=== PATIENT | male | born 1935 | race Caucasian/White ===

== ENCOUNTER 2018-11-07 15:41 | Inpatient (IN) | payer MEDICAID, OTHER ==
[~2018-11-07] VITALS: Ht 170.2 cm; Wt 76.7 kg
[2018-11-08 01:07] LABS: BASOPHILS % 0.8 % (0.0-2.0); EOSINOPHILS % 1.2 % (0.0-5.0); HEMATOCRIT. 25.5 % (42.0-52.0); HEMOGLOBIN. 8.4 g/dL (14.0-18.0); MEAN CORPUSCULAR HEMOGLOBIN 29.2 pg (28.0-32.0); MEAN CORPUSCULAR VOLUME 89.3 fL (80.0-94.0); MEAN PLATELET VOLUME 6.7 fl (7.4-10.4); MONOCYTES % 9.9 % (2.0-8.0); NEUTROPHILS % 75.1 % (40.0-76.0); PLATELET 273 x1000/uL (130-400); RED BLOOD CELL COUNT 2.86 mill/uL (4.7-6.1); RED CELL DISTRIBUTION WIDTH 15.6 % (11.6-14.6)
[2018-11-08 01:13] LABS: CHLORIDE 93 mEq/L (98-107)
[2018-11-08] MEDS ORDERED: LEVOFLOXACIN 750MG PREMIX 150 ML IV ONE (02:45)
[2018-11-08] MEDS ORDERED: VANCOMYCIN 1 G PREMIX 200 ML IV SCH (02:45)
[2018-11-08] MEDS ORDERED: DOCUSATE SODIUM 100MG CAPSULE PO PRN (07:00)
[2018-11-08] MEDS ORDERED: MAGNESIUM/ALUMINUM HYDROXIDE/SIMETHICONE 30ML UDC PO PRN (07:00)
[2018-11-08] MEDS ORDERED: LORAZEPAM 2MG/ML CPJ IV PRN (07:00)
[2018-11-08] MEDS ORDERED: ENOXAPARIN 40MG/0.4ML SYR SUBCUT SCH (07:00)
[2018-11-08] MEDS ORDERED: CLONIDINE 0.1MG TABLET PO PRN (07:00)
[2018-11-08] MEDS ORDERED: PIPERACILLIN/TAZ 3.375G PREMIX 50 ML IV SCH (07:00)
[2018-11-08] MEDS ORDERED: NA PHOS,M-B/NA PHOS,DI-BA ENEMA 118ML PR PRN (07:00)
[2018-11-08] MEDS ORDERED: GUAIFENESIN 200MG/10ML SUGAR FREE UDC PO PRN (07:00)
[2018-11-08] MEDS ORDERED: DIPHENHYDRAMINE 50MG/ML VIAL IV PRN (07:00)
[2018-11-08] MEDS ORDERED: IPRATROPIUM/ALBUTEROL 0.5-3(2.5)MG/3ML NEB INH PRN (07:00)
[2018-11-08] MEDS ORDERED: ONDANSETRON HCL 4MG/2ML INJ IV PRN (07:00)
[2018-11-08 07:30] VITALS: BP 126/68
[2018-11-08] MEDS ORDERED: MORPHINE SULFATE 4 MG/ML CPJ (NOT FOR IM USE) IV PRN (07:30)
[2018-11-08 08:00] VITALS: BP 126/68
[2018-11-08] MEDS ORDERED: CARVEDILOL 3.125 MG TABLET PO SCH (09:00)
[2018-11-08] MEDS: ENOXAPARIN 30MG/0.3ML SYR SUBCUT SCH (09:59)
[2018-11-08] MEDS: PIPERACILLIN/TAZ 2.25G PREMIX 50 ML IV SCH ×2 (09:59→18:01)
[2018-11-08] MEDS: HYDROCODONE/ACETAMINOPHEN 5/325MG TABLET PO PRN ×3 (10:01→19:50)
[2018-11-08] MEDS: ASPIRIN 81MG EC TABLET PO SCH (10:01)
[2018-11-08] MEDS ORDERED: VANCOMYCIN 500 MG PREMIX 100 ML IV SCH (11:00)
[2018-11-08 12:00] VITALS: BP 124/64
[2018-11-08] MEDS ORDERED: TAMS0.4C31 MT (15:44)
[2018-11-08] MEDS ORDERED: HYDR-4009 MT (15:44)
[2018-11-08] MEDS ORDERED: DOCU100T MT (15:44)
[2018-11-08] MEDS ORDERED: FURO40TA5 MT (15:44)
[2018-11-08 16:00] VITALS: BP 119/56
[2018-11-08] MEDS ORDERED: LACTULOSE 20G/30ML UDC PO PRN (17:00)
[2018-11-08] MEDS: IRON SUCROSE COMPLEX 100 MG/5 ML ML IV SCH (19:50)
[2018-11-08 20:00] VITALS: BP 127/63
[2018-11-09] VITALS: BP 132/59
[2018-11-09] MEDS: PIPERACILLIN/TAZ 2.25G PREMIX 50 ML IV SCH ×3 (00:14→17:56)
[2018-11-09] MEDS ORDERED: EPOETIN ALFA 4000UNITS/ML VIAL SUBCUT NR (01:00)
[2018-11-09 04:00] VITALS: BP 133/58
[2018-11-09 08:00] VITALS: BP 132/61
[2018-11-09 08:51] LABS: EOSINOPHILS % 1.9 % (0.0-5.0); HEMATOCRIT. 24.2 % (42.0-52.0); HEMOGLOBIN. 8.1 g/dL (14.0-18.0); LYMPHOCYTES % 14.5 % (20.0-50.0); MEAN CORPUSCULAR HEMOGLOBIN 29.6 pg (28.0-32.0); MEAN CORPUSCULAR VOLUME 88.6 fL (80.0-94.0); MEAN PLATELET VOLUME 6.8 fl (7.4-10.4); MONOCYTES % 10.3 % (2.0-8.0); NEUTROPHILS % 72.3 % (40.0-76.0); PLATELET 255 x1000/uL (130-400); RED BLOOD CELL COUNT 2.73 mill/uL (4.7-6.1); RED CELL DISTRIBUTION WIDTH 15.1 % (11.6-14.6)
[2018-11-09 09:02] LABS: CHLORIDE 91 mEq/L (98-107)
[2018-11-09 09:11] LABS: LDL CHOLESTEROL 55 mg/dL (5-100)
[2018-11-09 09:14] LABS: HDL CHOLESTEROL 45 mg/dL (40-59); T4 FREE 1.16 ng/dL (0.76-1.46)
[2018-11-09] MEDS: IRON SUCROSE COMPLEX 100 MG/5 ML ML IV SCH (09:18)
[2018-11-09] MEDS: ASPIRIN 81MG EC TABLET PO SCH (09:18)
[2018-11-09] MEDS: HYDROCODONE/ACETAMINOPHEN 5/325MG TABLET PO PRN ×2 (09:20→14:21)
[2018-11-09] MEDS: ENOXAPARIN 30MG/0.3ML SYR SUBCUT SCH (09:21)
[2018-11-09] MEDS ORDERED: IOHEXOL-350 100 ML BOTTLE ONE (11:38)
[2018-11-09 12:00] VITALS: BP 123/56
[2018-11-09 16:00] VITALS: BP 113/65
[2018-11-09 20:00] VITALS: BP 110/55
[2018-11-10] VITALS: BP 120/56
[2018-11-10 04:00] VITALS: BP 126/62
[2018-11-10 08:00] VITALS: BP 127/56
[2018-11-10] MEDS: ENOXAPARIN 30MG/0.3ML SYR SUBCUT SCH (09:00)
[2018-11-10] MEDS: ASPIRIN 81MG EC TABLET PO SCH (09:00)
[2018-11-10] MEDS: PIPERACILLIN/TAZ 2.25G PREMIX 50 ML IV SCH ×3 (09:58→17:00)
[2018-11-10] MEDS: IRON SUCROSE COMPLEX 100 MG/5 ML ML IV SCH (09:58)
[2018-11-10] MEDS ORDERED: BACITRACIN 15GM TUBE TOP ONE (11:17)
[2018-11-10] MEDS ORDERED: LIDOCAINE HCL 1% 20ML VIAL (Pyxis) INJ ONE (11:17)
[2018-11-10] MEDS ORDERED: GELATIN SPONGE,ABSORBABLE 12-7MM SPONGE ONE (11:17)
[2018-11-10] MEDS ORDERED: THROMBIN (BOVINE) 5000 UNITS/VIAL TOP ONE (11:18)
[2018-11-10] MEDS ORDERED: NORMAL SALINE 0.9% 10 ML SYR ONE (11:18)
[2018-11-10] MEDS ORDERED: BUPIVACAINE HCL/PF 0.5% (5MG/ML) 10ML ONE (11:18)
[2018-11-10] MEDS ORDERED: BACITRACIN 50,000 UNITS/VIAL ONE (11:19)
[2018-11-10] MEDS ORDERED: PAPAVERINE HCL 30 MG/ML 2ML IV ONE (11:58)
[2018-11-10] MEDS ORDERED: HEPARIN SODIUM 1,000 UNIT/1ML VIAL IV ONE (11:58)
[2018-11-10] MEDS ORDERED: VANCOMYCIN 750 MG PREMIX 150 ML IV SCH (14:00)
[2018-11-10] MEDS ORDERED: FENTANYL CITRATE/PF 50MCG/ML 2ML VIAL ONE (15:14)
[2018-11-10] MEDS ORDERED: SUCCINYLCHOLINE CHLORIDE 200MG/10ML IV ONE (15:15)
[2018-11-10] MEDS ORDERED: GLYCOPYRROLATE 0.2 MG/ML 2ML VIAL ONE (15:15)
[2018-11-10] MEDS ORDERED: METOCLOPRAMIDE HCL 10MG/2ML VIAL ONE (15:15)
[2018-11-10] MEDS ORDERED: MIDAZOLAM HCL 2 MG/2 ML VIAL ONE (15:15)
[2018-11-10] MEDS ORDERED: LIDOCAINE HCL/PF 1% 10 MG/ML 5ML VIAL ONE (15:15)
[2018-11-10] MEDS ORDERED: PROPOFOL 200MG/20ML VIAL IV ONE (15:15)
[2018-11-10] MEDS ORDERED: ONDANSETRON HCL 4MG/2ML INJ ONE (15:15)
[2018-11-10] MEDS ORDERED: ONDANSETRON HCL 4MG/2ML INJ IV PRN (15:30)
[2018-11-10] MEDS ORDERED: HYDROMORPHONE HCL/PF 2MG/ML CPJ IV PRN (15:30)
[2018-11-10] MEDS ORDERED: MORPHINE SULFATE 4 MG/ML CPJ (NOT FOR IM USE) IV PRN (15:30)
[2018-11-10] MEDS ORDERED: HEPARIN 1000 UNITS/ML 10ML ONE (15:38)
[2018-11-10] MEDS ORDERED: SODIUM CHLORIDE 0.9% 1,000 ML IV ONE (16:00)
[2018-11-10] MEDS ORDERED: HEPARIN SODIUM 1,000 UNIT/1ML VIAL IV NR (19:45)
[2018-11-10 20:00] VITALS: BP 125/66
[2018-11-10] MEDS: EPOETIN ALFA 4000UNITS/ML VIAL SUBCUT SCH (21:34)
[2018-11-10] MEDS: HYDROCODONE/ACETAMINOPHEN 5/325MG TABLET PO PRN (21:57)
[2018-11-11] VITALS (7 sets, daily range): BP systolic 103–115; BP diastolic 41–56
[2018-11-11] MEDS: PIPERACILLIN/TAZ 2.25G PREMIX 50 ML IV SCH ×3 (00:40→17:38)
[2018-11-11] MEDS: ACETAMINOPHEN 325MG TABLET PO PRN (01:15)
[2018-11-11] MEDS: IRON SUCROSE COMPLEX 100 MG/5 ML ML IV SCH (08:40)
[2018-11-11] MEDS: ASPIRIN 81MG EC TABLET PO SCH (08:40)
[2018-11-11] MEDS: ENOXAPARIN 30MG/0.3ML SYR SUBCUT SCH (08:40)
[2018-11-11 17:18] LABS: BG BASE EXCESS 2.7 mmol/L (-2.0-2.0); BG CARBOXYHEMOGLOBIN 0.8 % (0.5-1.5); BG DEOXYHEMOGLOBIN 9.8 % (0.0-5.0); BG HCO3 ACT 27.2 mmol/L (22.0-26.0); BG METHEMOGLOBIN 0.3 % (0.0-1.5); BG OXYGEN SATURATION 90.1 % (92.0-98.5); BG OXYHEMOGLOBIN 89.1 % (94.0-97.0); BG PCO2 41.8 mmHg (35.0-45.0); BG PH 7.432 (7.350-7.450); BG PO2 58.4 mmHg (75.0-100.0); BG SAMPLE SITE RIGHT BRACHIAL; BG TOTAL HEMOGLOBIN 10.2 g/dL (12.0-18.0); BG VENT MODE ROOM AIR
[2018-11-12] VITALS: BP 117/49
[2018-11-12] MEDS: ACETAMINOPHEN 325MG TABLET PO PRN (00:04)
[2018-11-12] MEDS: PIPERACILLIN/TAZ 2.25G PREMIX 50 ML IV SCH ×3 (00:04→16:18)
[2018-11-12 04:00] VITALS: BP 126/52
[2018-11-12 06:20] LABS: BASOPHILS % 0.8 % (0.0-2.0); EOSINOPHILS % 3.4 % (0.0-5.0); HEMATOCRIT. 22.6 % (42.0-52.0); HEMOGLOBIN. 7.4 g/dL (14.0-18.0); LYMPHOCYTES % 13.2 % (20.0-50.0); MEAN CORPUSCULAR HEMOGLOBIN 29.3 pg (28.0-32.0); MEAN PLATELET VOLUME 7.4 fl (7.4-10.4); MONOCYTES % 10.9 % (2.0-8.0); NEUTROPHILS % 71.7 % (40.0-76.0); PLATELET 252 x1000/uL (130-400); RED BLOOD CELL COUNT 2.51 mill/uL (4.7-6.1); RED CELL DISTRIBUTION WIDTH 15.8 % (11.6-14.6)
[2018-11-12 08:00] VITALS: BP 123/57
[2018-11-12] MEDS: ASPIRIN 81MG EC TABLET PO SCH (08:56)
[2018-11-12] MEDS: IRON SUCROSE COMPLEX 100 MG/5 ML ML IV SCH (08:56)
[2018-11-12] MEDS: ENOXAPARIN 30MG/0.3ML SYR SUBCUT SCH (08:57)
[2018-11-12 12:00] VITALS: BP 115/56
[2018-11-12 16:00] VITALS: BP 103/48
[2018-11-12] MEDS ORDERED: VANCOMYCIN 1250MG in DEXTROSE 5% WATER 250ML IV NR (18:00)
[2018-11-12 20:00] VITALS: BP 106/42
[2018-11-12] MEDS: HYDROCODONE/ACETAMINOPHEN 5/325MG TABLET PO PRN (22:16)
[2018-11-12] MEDS: EPOETIN ALFA 4000UNITS/ML VIAL SUBCUT SCH (22:16)
[2018-11-13] VITALS: BP 125/55
[2018-11-13] MEDS: PIPERACILLIN/TAZ 2.25G PREMIX 50 ML IV SCH ×3 (01:41→17:16)
[2018-11-13 04:00] VITALS: BP 118/54
[2018-11-13 07:07] LABS: BASOPHILS % 0.6 % (0.0-2.0); EOSINOPHILS % 4.7 % (0.0-5.0); HEMOGLOBIN. 7.2 g/dL (14.0-18.0); MEAN CORPUSCULAR HEMOGLOBIN 30.1 pg (28.0-32.0); MEAN CORPUSCULAR VOLUME 92.2 fL (80.0-94.0); MEAN PLATELET VOLUME 7.5 fl (7.4-10.4); MONOCYTES % 10.6 % (2.0-8.0); NEUTROPHILS % 71.1 % (40.0-76.0); PLATELET 261 x1000/uL (130-400); RED BLOOD CELL COUNT 2.39 mill/uL (4.7-6.1); RED CELL DISTRIBUTION WIDTH 15.3 % (11.6-14.6)
[2018-11-13 08:00] VITALS: BP 126/46
[2018-11-13] MEDS: ASPIRIN 81MG EC TABLET PO SCH (08:54)
[2018-11-13] MEDS: ENOXAPARIN 30MG/0.3ML SYR SUBCUT SCH (08:55)
[2018-11-13 12:00] VITALS: BP 138/56
[2018-11-13] MEDS: ACETAMINOPHEN 325MG TABLET PO PRN (15:13)
[2018-11-13 15:55] VITALS: BP 131/41
[2018-11-13 20:00] VITALS: BP 133/57
[2018-11-13] MEDS ORDERED: IRON SUCROSE COMPLEX 100 MG/5 ML ML IV SCH (23:00)
[2018-11-14] VITALS: BP 120/58
[2018-11-14] MEDS: IRON SUCROSE COMPLEX 100 MG/5 ML ML IV SCH ×2 (01:35→10:32)
[2018-11-14] MEDS: PIPERACILLIN/TAZ 2.25G PREMIX 50 ML IV SCH ×3 (01:35→17:28)
[2018-11-14 04:00] VITALS: BP 155/55
[2018-11-14 08:00] VITALS: BP 143/68
[2018-11-14] MEDS: ASPIRIN 81MG EC TABLET PO SCH (09:43)
[2018-11-14] MEDS: ACETAMINOPHEN 325MG TABLET PO PRN ×2 (09:56→17:48)
[2018-11-14] MEDS: ENOXAPARIN 30MG/0.3ML SYR SUBCUT SCH (09:56)
[2018-11-14 12:00] VITALS: BP 122/53
[2018-11-14 16:00] VITALS: BP 138/63
[2018-11-14 20:00] VITALS: BP 130/65
[2018-11-14] MEDS: EPOETIN ALFA 4000UNITS/ML VIAL SUBCUT SCH (23:15)
[2018-11-15] VITALS: BP 140/65
[2018-11-15 04:00] VITALS: BP 140/64
[2018-11-15 08:00] VITALS: BP 138/62
[2018-11-15] MEDS: PIPERACILLIN/TAZ 2.25G PREMIX 50 ML IV SCH (09:00)
[2018-11-15] MEDS: IRON SUCROSE COMPLEX 100 MG/5 ML ML IV SCH (09:44)
[2018-11-15] MEDS: ENOXAPARIN 30MG/0.3ML SYR SUBCUT SCH (09:44)
[2018-11-15] MEDS: ASPIRIN 81MG EC TABLET PO SCH (09:44)
[2018-11-15] MEDS: ACETAMINOPHEN 325MG TABLET PO PRN (11:37)
[2018-11-15 12:00] VITALS: BP 148/71
[2018-11-15 12:33] VITALS: BP 142/70
== END 2018-11-15 12:45 | disposition home or self-care (01) | DRG 180 ==
LOC: ER 17:12 → 6EST 11-08 02:41 → EDBEDREQ 11-08 03:01 → EDBEDREQTM 11-08 03:01 → ENRESERV 11-08 03:59
PROVIDERS: ADMIT Internal Medicine; ATTEND Internal Medicine
PROC: 03180ZD Bypass Left Brachial Artery to Upper Arm Vein, Open Approach (ICD-10-PCS; principal; 2018-11-10)
DX: I13.2 Hypertensive heart and chronic kidney disease with heart failure and with stage 5 chronic kidney disease, or end stage renal disease (principal); J96.01 Acute respiratory failure with hypoxia; E46 Unspecified protein-calorie malnutrition; E11.22 Type 2 diabetes mellitus with diabetic chronic kidney disease; L03.116 Cellulitis of left lower limb; R65.10 Systemic inflammatory response syndrome (SIRS) of non-infectious origin without acute organ dysfunction; E11.51 Type 2 diabetes mellitus with diabetic peripheral angiopathy without gangrene; N18.6 End stage renal disease; I73.9 Peripheral vascular disease, unspecified; D64.9 Anemia, unspecified; I50.9 Heart failure, unspecified; I87.2 Venous insufficiency (chronic) (peripheral); L97.929 Non-pressure chronic ulcer of unspecified part of left lower leg with unspecified severity; Z79.899 Other long term (current) drug therapy; Z87.891 Personal history of nicotine dependence; Z99.2 Dependence on renal dialysis; Z68.26 Body mass index [BMI] 26.0-26.9, adult
CPT/HCPCS: 36415; 36600; 71045; 75635; 80048; 80061; 80202; 82375; 82805; 83605; 84439; 84443; 93306; 93922; 93970; 94618; 96374; 97110; 97116; 97162; 97166; 97530; 97535; 99285; C1893; J0330; J0885; J1644; J1650; J1956; J2250; J2405; J2440; J2543; J2704; J2765; J3010; J3370; J3490; J7040; J7050; J7060; Q9967

== ENCOUNTER 2018-11-26 15:58 | Inpatient (IN) | payer MEDICAID ==
[~2018-11-26] VITALS: Ht 170.2 cm; Wt 75.3 kg
[~2018-11-26 15:58] MED LIST: DOCU100T MT; FURO40TA5 MT; HYDR-4009 MT; TAMS0.4C31 MT
[2018-11-26] MEDS ORDERED: HYDROCODONE/ACETAMINOPHEN 5/325MG TABLET PO STA (17:40)
[2018-11-26 18:08] LABS: BASOPHILS % 1.2 % (0.0-2.0); EOSINOPHILS % 2.8 % (0.0-5.0); HEMATOCRIT. 25.9 % (42.0-52.0); HEMOGLOBIN. 8.6 g/dL (14.0-18.0); LYMPHOCYTES % 11.5 % (20.0-50.0); MEAN CORPUSCULAR HEMOGLOBIN 30.7 pg (28.0-32.0); MEAN CORPUSCULAR VOLUME 92.2 fL (80.0-94.0); MEAN PLATELET VOLUME 7.2 fl (7.4-10.4); MONOCYTES % 9.1 % (2.0-8.0); NEUTROPHILS % 75.4 % (40.0-76.0); PLATELET 307 x1000/uL (130-400); RED BLOOD CELL COUNT 2.81 mill/uL (4.7-6.1); RED CELL DISTRIBUTION WIDTH 16.5 % (11.6-14.6)
[2018-11-26 18:12] LABS: CHLORIDE 94 mEq/L (98-107); PROTHROMBIN TIME 10.3 sec (9.1-11.1)
[2018-11-26] MEDS: HYDROCODONE/ACETAMINOPHEN 5/325MG TABLET PO PRN (20:38)
[2018-11-26] MEDS ORDERED: DOCUSATE SODIUM 100MG CAPSULE PO PRN (21:15)
[2018-11-26] MEDS ORDERED: HYDROCODONE/APAP 7.5/325MG 1 TAB TABLET PO PRN ×2 (21:15)
[2018-11-26] MEDS ORDERED: DIPHENHYDRAMINE 50MG/ML VIAL IV PRN (21:15)
[2018-11-26] MEDS ORDERED: GUAIFENESIN 200MG/10ML SUGAR FREE UDC PO PRN (21:15)
[2018-11-26] MEDS ORDERED: ACETAMINOPHEN 325MG TABLET PO PRN (21:15)
[2018-11-26] MEDS ORDERED: CLONIDINE 0.1MG TABLET PO PRN (21:15)
[2018-11-26] MEDS ORDERED: MAGNESIUM/ALUMINUM HYDROXIDE/SIMETHICONE 30ML UDC PO PRN (21:15)
[2018-11-26] MEDS ORDERED: ONDANSETRON HCL 4MG/2ML INJ IV PRN (21:15)
[2018-11-26 22:40] VITALS: BP 105/85
[2018-11-26] MEDS ORDERED: HYDROMORPHONE HCL/PF 2MG/ML CPJ IV PRN (23:37)
[2018-11-26] MEDS ORDERED: EPOETIN ALFA 4000UNITS/ML VIAL SUBCUT NR (23:59)
[2018-11-27] VITALS (7 sets, daily range): BP systolic 110–136; BP diastolic 42–75
[2018-11-27] MEDS ORDERED: FOLI1TAB63 MT (02:15)
[2018-11-27 07:21] LABS: BASOPHILS % 1.1 % (0.0-2.0); EOSINOPHILS % 2.3 % (0.0-5.0); HEMATOCRIT. 24.3 % (42.0-52.0); HEMOGLOBIN. 7.9 g/dL (14.0-18.0); LYMPHOCYTES % 12.1 % (20.0-50.0); MEAN CORPUSCULAR HEMOGLOBIN 29.9 pg (28.0-32.0); MEAN CORPUSCULAR VOLUME 91.9 fL (80.0-94.0); MEAN PLATELET VOLUME 7.2 fl (7.4-10.4); MONOCYTES % 9.4 % (2.0-8.0); NEUTROPHILS % 75.1 % (40.0-76.0); PLATELET 284 x1000/uL (130-400); RED BLOOD CELL COUNT 2.64 mill/uL (4.7-6.1); RED CELL DISTRIBUTION WIDTH 16.3 % (11.6-14.6)
[2018-11-27 09:20] LABS: CHLORIDE 96 mEq/L (98-107)
[2018-11-27 09:33] LABS: LDL CHOLESTEROL 64 mg/dL (5-100)
[2018-11-27 09:34] LABS: HDL CHOLESTEROL 45 mg/dL (40-59)
[2018-11-27] MEDS: AMLODIPINE 10MG TABLET PO SCH (10:03)
[2018-11-27] MEDS: HYDROCODONE/ACETAMINOPHEN 5/325MG TABLET PO PRN (16:08)
[2018-11-28] VITALS (14 sets, daily range): BP systolic 109–139; BP diastolic 41–71
[2018-11-28] MEDS: IRON SUCROSE COMPLEX 100 MG/5 ML ML IV SCH ×2 (01:56→10:51)
[2018-11-28] MEDS ORDERED: MIDAZOLAM HCL 2 MG/2 ML VIAL ONE (08:59)
[2018-11-28] MEDS ORDERED: FENTANYL CITRATE/PF 50MCG/ML 2ML VIAL ONE (08:59)
[2018-11-28] MEDS ORDERED: LIDOCAINE HCL 1% 20ML VIAL (Pyxis) INJ ONE (09:00)
[2018-11-28] MEDS ORDERED: IODIXANOL 320MG/ML 100 ML BOTTLE IV ONE (09:00)
[2018-11-28] MEDS: AMLODIPINE 10MG TABLET PO SCH ×2 (09:00→10:51)
[2018-11-29] VITALS (9 sets, daily range): BP systolic 104–141; BP diastolic 38–83
[2018-11-29] MEDS: HYDROCODONE/ACETAMINOPHEN 5/325MG TABLET PO PRN (00:51)
[2018-11-29] MEDS: IRON SUCROSE COMPLEX 100 MG/5 ML ML IV SCH (08:56)
[2018-11-29] MEDS: AMLODIPINE 10MG TABLET PO SCH (08:57)
[2018-12-01] MEDS ORDERED: EPOETIN ALFA 4000UNITS/ML VIAL SUBCUT SCH (21:00)
== END 2018-11-29 15:40 | disposition home or self-care (01) | DRG 194 ==
LOC: ER 15:58 → 6WST 19:11 → SUPCPDRO 21:02 → ENRESERV 21:19 → 3WST 11-28 10:11
PROVIDERS: ADMIT Hospitalist; ATTEND Hospitalist
PROC: B41G1ZZ Fluoroscopy of Left Lower Extremity Arteries using Low Osmolar Contrast (ICD-10-PCS; principal; 2018-11-28)
PROC: 5A1D70Z Performance of Urinary Filtration, Intermittent, Less than 6 Hours Per Day (ICD-10-PCS; 2018-11-28)
DX: I13.2 Hypertensive heart and chronic kidney disease with heart failure and with stage 5 chronic kidney disease, or end stage renal disease (principal); E46 Unspecified protein-calorie malnutrition; L97.229 Non-pressure chronic ulcer of left calf with unspecified severity; N18.6 End stage renal disease; I73.9 Peripheral vascular disease, unspecified; I50.33 Acute on chronic diastolic (congestive) heart failure; I77.1 Stricture of artery; D64.9 Anemia, unspecified; Z99.2 Dependence on renal dialysis; Z68.26 Body mass index [BMI] 26.0-26.9, adult; Z79.1 Long term (current) use of non-steroidal anti-inflammatories (NSAID); Z79.899 Other long term (current) drug therapy
CPT/HCPCS: 36246; 36415; 71045; 73590; 75710; 80061; 93922; 99285; C1760; C1769; C1893; J0885; J1170; J1644; J2250; J3010; J3490; Q9967

== ENCOUNTER 2019-02-16 20:01 | Inpatient (IN) | payer MEDICAID ==
[~2019-02-16] VITALS: Ht 154.9 cm; Wt 79.4 kg
[~2019-02-16 20:01] MED LIST changes: +FOLI1TAB63 MT
[2019-02-16] MEDS ORDERED: MORPHINE SULFATE 4 MG/ML CPJ (NOT FOR IM USE) IV STA (23:52)
[2019-02-16] MEDS ORDERED: ONDANSETRON HCL 4MG/2ML INJ IV STA (23:52)
[2019-02-17] VITALS (12 sets, daily range): BP systolic 124–165; BP diastolic 55–74
[2019-02-17 00:38] LABS: BASOPHILS % 0.9 % (0.0-2.0); EOSINOPHILS % 2.6 % (0.0-5.0); HEMATOCRIT. 25.5 % (42.0-52.0); HEMOGLOBIN. 9.2 g/dL (14.0-18.0); MEAN CORPUSCULAR HEMOGLOBIN 33.3 pg (28.0-32.0); MEAN CORPUSCULAR VOLUME 92.5 fL (80.0-94.0); MEAN PLATELET VOLUME 7.1 fl (7.4-10.4); MONOCYTES % 9.6 % (2.0-8.0); NEUTROPHILS % 70.9 % (40.0-76.0); PLATELET 185 x1000/uL (130-400); RED BLOOD CELL COUNT 2.75 mill/uL (4.7-6.1); RED CELL DISTRIBUTION WIDTH 14.6 % (11.6-14.6)
[2019-02-17 00:44] LABS: CHLORIDE 97 mEq/L (98-107); PROTHROMBIN TIME 10.7 sec (9.6-11.0)
[2019-02-17] MEDS ORDERED: ONDANSETRON HCL 4MG/2ML INJ IV PRN (09:15)
[2019-02-17] MEDS ORDERED: DOCUSATE SODIUM 100MG CAPSULE PO PRN (09:15)
[2019-02-17] MEDS ORDERED: MAGNESIUM/ALUMINUM HYDROXIDE/SIMETHICONE 30ML UDC PO PRN (09:15)
[2019-02-17] MEDS ORDERED: CLONIDINE 0.1MG TABLET PO PRN (09:15)
[2019-02-17] MEDS ORDERED: IPRATROPIUM/ALBUTEROL 0.5-3(2.5)MG/3ML NEB INH PRN (09:15)
[2019-02-17] MEDS ORDERED: DIPHENHYDRAMINE 50MG/ML VIAL IV PRN (09:15)
[2019-02-17] MEDS ORDERED: GUAIFENESIN 200MG/10ML SUGAR FREE UDC PO PRN (09:15)
[2019-02-17] MEDS ORDERED: ACETAMINOPHEN 325MG TABLET PO PRN (09:15)
[2019-02-17 09:35] LABS: PHOSPHORUS 4.5 mg/dL (2.5-4.9)
[2019-02-17] MEDS ORDERED: SODIUM BICARBONATE 4% (2.4MEQ) 5ML VIAL IV ONE (10:41)
[2019-02-17] MEDS ORDERED: LIDOCAINE HCL 1% 20ML VIAL (Pyxis) INJ ONE (10:43)
[2019-02-17] MEDS ORDERED: IOHEXOL-300 100 ML BOTTLE ONE (10:45)
[2019-02-17] MEDS ORDERED: LIDOCAINE HCL/EPINEPHRINE 1%-EPI 1:100,000 20 ML VIAL ONE (10:46)
[2019-02-17] MEDS: MORPHINE SULFATE 2 MG/ML CPJ (NOT FOR IM USE) IV PRN ×2 (10:48→20:16)
[2019-02-17] MEDS ORDERED: CEFAZOLIN 1000MG PREMIX 50 ML IV ONE (11:00)
[2019-02-17] MEDS ORDERED: MELA1TAB9 MT (12:32)
[2019-02-17] MEDS ORDERED: FENTANYL CITRATE/PF 50MCG/ML 2ML VIAL ONE (13:10)
[2019-02-17 16:39] LABS: CREATINE KINASE MB FRACTION 1.2 ng/mL (0.5-3.6)
[2019-02-17] MEDS ORDERED: EPOETIN ALFA 4000UNITS/ML VIAL SUBCUT SCH (21:00)
[2019-02-18 00:42] VITALS: BP 128/56
[2019-02-18 00:44] LABS: CREATINE KINASE MB FRACTION 1.1 ng/mL (0.5-3.6)
[2019-02-18 04:00] VITALS: BP 120/58
[2019-02-18] MEDS ORDERED: IRON SUCROSE COMPLEX 100 MG in SODIUM CHLORIDE 0.9% 100 ML IV SCH (06:00)
[2019-02-18] MEDS: IRON SUCROSE COMPLEX 100 MG/5 ML ML IV SCH (06:52)
[2019-02-18] MEDS: HYDROCODONE/ACETAMINOPHEN 5/325MG TABLET PO PRN (06:52)
[2019-02-18] MEDS ORDERED: IOHEXOL-300 50 ML BOTTLE IV ONE (07:10)
[2019-02-18 08:00] VITALS: BP 113/52
[2019-02-18 11:30] VITALS: BP 120/42
[2019-02-18 15:27] LABS: BASOPHILS % 1.1 % (0.0-2.0); EOSINOPHILS % 3.4 % (0.0-5.0); HEMATOCRIT. 25.9 % (42.0-52.0); HEMOGLOBIN. 9.1 g/dL (14.0-18.0); LYMPHOCYTES % 16.5 % (20.0-50.0); MEAN CORPUSCULAR HEMOGLOBIN 32.7 pg (28.0-32.0); MEAN CORPUSCULAR VOLUME 93.4 fL (80.0-94.0); MEAN PLATELET VOLUME 7.3 fl (7.4-10.4); MONOCYTES % 10.8 % (2.0-8.0); NEUTROPHILS % 68.2 % (40.0-76.0); PLATELET 182 x1000/uL (130-400); RED BLOOD CELL COUNT 2.77 mill/uL (4.7-6.1); RED CELL DISTRIBUTION WIDTH 14.4 % (11.6-14.6)
[2019-02-18 15:39] LABS: CHLORIDE 97 mEq/L (98-107)
[2019-02-18 15:45] LABS: LDL CHOLESTEROL 59 mg/dL (5-100)
[2019-02-18 15:46] LABS: HDL CHOLESTEROL 50 mg/dL (40-59)
[2019-02-18 16:30] VITALS: BP 116/62
[2019-02-18 20:00] VITALS: BP 114/70
[2019-02-18] MEDS: EPOETIN ALFA 4000UNITS/ML VIAL SUBCUT SCH (22:46)
[2019-02-19 00:26] VITALS: BP 110/48
[2019-02-19] MEDS: IRON SUCROSE COMPLEX 100 MG/5 ML ML IV SCH (06:36)
[2019-02-19 08:00] VITALS: BP 126/50
[2019-02-19] MEDS: HYDROCODONE/ACETAMINOPHEN 5/325MG TABLET PO PRN ×2 (10:13→20:39)
[2019-02-19 12:00] VITALS: BP 126/46
[2019-02-19 16:00] VITALS: BP 103/36
[2019-02-19 17:22] LABS: BASOPHILS % 1.1 % (0.0-2.0); EOSINOPHILS % 3.9 % (0.0-5.0); HEMATOCRIT. 28.5 % (42.0-52.0); HEMOGLOBIN. 9.8 g/dL (14.0-18.0); LYMPHOCYTES % 18.5 % (20.0-50.0); MEAN CORPUSCULAR HEMOGLOBIN 32.2 pg (28.0-32.0); MEAN CORPUSCULAR VOLUME 93.5 fL (80.0-94.0); MEAN PLATELET VOLUME 7.2 fl (7.4-10.4); MONOCYTES % 11.3 % (2.0-8.0); NEUTROPHILS % 65.2 % (40.0-76.0); PLATELET 180 x1000/uL (130-400); RED BLOOD CELL COUNT 3.05 mill/uL (4.7-6.1); RED CELL DISTRIBUTION WIDTH 14.1 % (11.6-14.6)
[2019-02-19 20:00] VITALS: BP 120/31
[2019-02-20] VITALS: BP 118/32
[2019-02-20] MEDS ORDERED: HEPARIN SODIUM 1,000 UNIT/1ML VIAL IV SCH (00:30)
[2019-02-20 04:00] VITALS: BP 117/23
[2019-02-20] MEDS: IRON SUCROSE COMPLEX 100 MG/5 ML ML IV SCH (06:28)
[2019-02-20] MEDS: HYDROCODONE/ACETAMINOPHEN 5/325MG TABLET PO PRN (06:47)
[2019-02-20 07:43] LABS: BASOPHILS % 1.3 % (0.0-2.0); EOSINOPHILS % 3.8 % (0.0-5.0); HEMATOCRIT. 26.4 % (42.0-52.0); HEMOGLOBIN. 9.3 g/dL (14.0-18.0); LYMPHOCYTES % 17.1 % (20.0-50.0); MEAN CORPUSCULAR HEMOGLOBIN 32.6 pg (28.0-32.0); MEAN CORPUSCULAR VOLUME 92.9 fL (80.0-94.0); MEAN PLATELET VOLUME 7.6 fl (7.4-10.4); MONOCYTES % 10.2 % (2.0-8.0); NEUTROPHILS % 67.6 % (40.0-76.0); PLATELET 157 x1000/uL (130-400); RED BLOOD CELL COUNT 2.85 mill/uL (4.7-6.1); RED CELL DISTRIBUTION WIDTH 14.2 % (11.6-14.6)
[2019-02-20 07:59] LABS: T4 FREE 1.15 ng/dL (0.76-1.46)
[2019-02-20 08:19] VITALS: BP 118/55
[2019-02-20] MEDS ORDERED: PAPAVERINE HCL 30 MG/ML 2ML IV ONE (12:58)
[2019-02-20] MEDS ORDERED: THROMBIN (BOVINE) 5000 UNITS/VIAL TOP ONE (12:58)
[2019-02-20] MEDS ORDERED: LIDOCAINE HCL 1% 20ML VIAL (Pyxis) INJ ONE (12:58)
[2019-02-20] MEDS ORDERED: HEPARIN SODIUM 1,000 UNIT/1ML VIAL IV ONE (12:59)
[2019-02-20] MEDS ORDERED: BACITRACIN 50,000 UNITS/VIAL ONE (12:59)
[2019-02-20] MEDS ORDERED: BUPIVACAINE HCL/PF 0.5% (5MG/ML) 10ML ONE (12:59)
[2019-02-20 13:02] VITALS: BP 140/92
[2019-02-20 16:00] VITALS: BP 140/92
[2019-02-20] MEDS ORDERED: MIDAZOLAM HCL 2 MG/2 ML VIAL ONE (17:04)
[2019-02-20] MEDS ORDERED: FENTANYL CITRATE/PF 50MCG/ML 2ML VIAL ONE (17:04)
[2019-02-20] MEDS ORDERED: DEXAMETHASONE 4MG/ML 1ML VIAL ONE (17:22)
[2019-02-20] MEDS ORDERED: HEPARIN 5000 UNITS/ML VIAL ONE (17:29)
[2019-02-20] MEDS ORDERED: ONDANSETRON HCL 4MG/2ML INJ ONE (19:00)
[2019-02-20] MEDS: EPOETIN ALFA 4000UNITS/ML VIAL SUBCUT SCH (22:01)
[2019-02-21] VITALS: BP 148/66
[2019-02-21] MEDS: IRON SUCROSE COMPLEX 100 MG/5 ML ML IV SCH (05:50)
[2019-02-21 08:00] VITALS: BP 125/47
[2019-02-21 12:00] VITALS: BP 114/50
[2019-02-21 14:29] VITALS: BP 114/59
[2019-02-21 16:00] VITALS: BP 113/59
== END 2019-02-21 16:17 | disposition home or self-care (01) | DRG 180 ==
LOC: ER 20:01 → 6WST 02-17 04:47 → EDBEDREQTM 02-17 04:49 → EDBEDREQDT 02-17 04:49 → EDBEDREQ 02-17 04:49 → ENRESERV 02-17 07:07
PROVIDERS: ADMIT Internal Medicine; ATTEND Internal Medicine
PROC: 5A1D70Z Performance of Urinary Filtration, Intermittent, Less than 6 Hours Per Day (ICD-10-PCS; 2019-02-17)
PROC: 03180ZD Bypass Left Brachial Artery to Upper Arm Vein, Open Approach (ICD-10-PCS; principal; 2019-02-20)
PROC: 5A1D70Z Performance of Urinary Filtration, Intermittent, Less than 6 Hours Per Day (ICD-10-PCS; 2019-02-20)
DX: I96 Gangrene, not elsewhere classified (principal); E11.22 Type 2 diabetes mellitus with diabetic chronic kidney disease; E11.52 Type 2 diabetes mellitus with diabetic peripheral angiopathy with gangrene; T82.898A Other specified complication of vascular prosthetic devices, implants and grafts, initial encounter; I12.0 Hypertensive chronic kidney disease with stage 5 chronic kidney disease or end stage renal disease; N18.6 End stage renal disease; L97.929 Non-pressure chronic ulcer of unspecified part of left lower leg with unspecified severity; I77.1 Stricture of artery; I87.2 Venous insufficiency (chronic) (peripheral); M19.90 Unspecified osteoarthritis, unspecified site; D63.1 Anemia in chronic kidney disease; M85.80 Other specified disorders of bone density and structure, unspecified site; Z87.891 Personal history of nicotine dependence; Z99.2 Dependence on renal dialysis; Z79.4 Long term (current) use of insulin; Y92.89 Other specified places as the place of occurrence of the external cause; Y92.230 Patient room in hospital as the place of occurrence of the external cause
CPT/HCPCS: 36415; 36901; 71045; 73130; 76937; 80048; 80061; 82550; 82553; 83036; 83605; 83735; 84100; 84134; 84439; 84443; 84481; 87070; 87077; 87186; 93005; 93922; 93970; 96365; 96375; 97161; 97166; 99285; C1725; C1766; C1769; C1887; J0690; J0885; J1100; J1644; J2250; J2270; J2405; J2440; J3010; J3490; J7040; J7050; Q9967

== ENCOUNTER 2021-04-29 15:23 | Inpatient (IN) | payer MEDICAID, OTHER ==
[~2021-04-29] VITALS: Ht 160 cm; Wt 83.9 kg
[~2021-04-29 15:23] MED LIST changes: +ASPI-1160 PO; +CALC0.253 MT; +DILT120C88 PO; +FERR325T6 PO; +FISH1CAP34 MT; +FOLI0.8T23 PO; +GUAI600T44 PO; +LEVO250T58 MT; +MELA1TAB46 MT; +TOPUD PO
[2021-04-29] MEDS ORDERED: PIPERACILLIN/TAZ 3.375G PREMIX 50 ML IV NR (15:51)
[2021-04-29] MEDS ORDERED: PIPERACILLIN/TAZOBACTAM 3.375GM/50ML PREMIX IV ONE (16:00)
[2021-04-29] MEDS ORDERED: VANCOMYCIN 1 G PREMIX 200 ML IV SCH (16:00)
[2021-04-29 16:18] LABS: HEMATOCRIT. 28.7 % (42.0-52.0); MEAN CORPUSCULAR HEMOGLOBIN 32.9 pg (28.0-32.0); MEAN CORPUSCULAR VOLUME 94.7 fL (80.0-94.0); MEAN PLATELET VOLUME 7.4 fl (7.4-10.4); PLATELET 270 x1000/uL (130-400); RED BLOOD CELL COUNT 3.03 mill/uL (4.7-6.1); RED CELL DISTRIBUTION WIDTH 13.8 % (11.6-14.6)
[2021-04-29 16:24] LABS: CHLORIDE 94 mEq/L (98-107)
[2021-04-29 16:26] LABS: PROTHROMBIN TIME 11.1 sec (9.6-11.0)
[2021-04-29 17:09] LABS: PLATELET ESTIMATE NORMAL
[2021-04-29 17:14] LABS: CLARITY URINE CLEAR (CLEAR); COLOR URINE YELLOW (YELLOW); KETONES URINE NEGATIVE (NEGATIVE); LEUKOCYTE ESTERASE URINE 1+ (NEGATIVE); NITRITE URINE NEGATIVE (NEGATIVE); OCCULT BLOOD URINE 1+ (NEGATIVE); PH URINE >=9.0 (4.5-8.0); PROTEIN URINE 2+ (NEGATIVE); SPECIFIC GRAVITY URINE 1.011 (1.005-1.030)
[2021-04-29] MEDS ORDERED: ACETAMINOPHEN 325MG TABLET PO ONE (17:45)
[2021-04-29] MEDS ORDERED: SODIUM CHLORIDE 0.9% IV ONE (18:15)
[2021-04-30] VITALS: BP 117/43
[2021-04-30] MEDS ORDERED: HYDROCODONE/ACETAMINOPHEN 5/325MG TABLET PO PRN (00:45)
[2021-04-30 04:00] VITALS: BP 120/42
[2021-04-30] MEDS: CEFTRIAXONE 1,000 MG in DEXTROSE 5% WATER 50 ML IV SCH (05:08)
[2021-04-30 07:22] LABS: HEMATOCRIT. 27.2 % (42.0-52.0); HEMOGLOBIN. 9.4 g/dL (14.0-18.0); MEAN CORPUSCULAR HEMOGLOBIN 33.2 pg (28.0-32.0); MEAN CORPUSCULAR VOLUME 95.9 fL (80.0-94.0); MEAN PLATELET VOLUME 7.6 fl (7.4-10.4); PLATELET 235 x1000/uL (130-400); RED BLOOD CELL COUNT 2.83 mill/uL (4.7-6.1); RED CELL DISTRIBUTION WIDTH 13.9 % (11.6-14.6)
[2021-04-30 07:35] LABS: CHLORIDE 97 mEq/L (98-107)
[2021-04-30 07:47] LABS: LDL CHOLESTEROL 57 mg/dL (5-100)
[2021-04-30 07:49] LABS: HDL CHOLESTEROL 41 mg/dL (40-59)
[2021-04-30 08:00] VITALS: BP 124/42
[2021-04-30] MEDS: SEVELAMER CARBONATE 800 MG TABLET PO SCH ×3 (08:54→16:43)
[2021-04-30] MEDS: FOLIC ACID/VITAMIN B COMP W-C TABLET PO SCH (08:54)
[2021-04-30] MEDS ORDERED: CEFTRIAXONE 1 G PREMIX 50 ML IV SCH (09:00)
[2021-04-30 12:00] VITALS: BP 151/66
[2021-04-30 16:00] VITALS: BP 142/53
[2021-04-30] MEDS: ACETAMINOPHEN 325MG TABLET PO PRN (19:41)
[2021-04-30 20:00] VITALS: BP 122/44
[2021-05-01] VITALS: BP 114/47
[2021-05-01 00:21] LABS: PLATELET ESTIMATE NORMAL
[2021-05-01] MEDS: ACETAMINOPHEN 325MG TABLET PO PRN (00:56)
[2021-05-01] MEDS: CEFTRIAXONE 1,000 MG in DEXTROSE 5% WATER 50 ML IV SCH (02:27)
[2021-05-01 04:00] VITALS: BP 136/67
[2021-05-01 08:00] VITALS: BP 144/68
[2021-05-01] MEDS: SEVELAMER CARBONATE 800 MG TABLET PO SCH ×3 (08:39→17:15)
[2021-05-01] MEDS: FOLIC ACID/VITAMIN B COMP W-C TABLET PO SCH (08:39)
[2021-05-01 10:44] LABS: HEMATOCRIT. 28.5 % (42.0-52.0); HEMOGLOBIN. 9.8 g/dL (14.0-18.0); MEAN CORPUSCULAR HEMOGLOBIN 32.8 pg (28.0-32.0); MEAN CORPUSCULAR VOLUME 95.6 fL (80.0-94.0); MEAN PLATELET VOLUME 7.9 fl (7.4-10.4); PLATELET 240 x1000/uL (130-400); RED BLOOD CELL COUNT 2.98 mill/uL (4.7-6.1); RED CELL DISTRIBUTION WIDTH 13.9 % (11.6-14.6)
[2021-05-01 11:16] LABS: CHLORIDE 96 mEq/L (98-107)
[2021-05-01 12:00] VITALS: BP 129/52
[2021-05-01 16:00] VITALS: BP 129/54
[2021-05-01] MEDS ORDERED: IPRATROPIUM/ALBUTEROL 0.5-3(2.5)MG/3ML NEB HHN NR (18:30)
[2021-05-01] MEDS ORDERED: NALOXONE HCL 0.4MG/ML VIAL IV PRN (19:15)
[2021-05-01 20:00] VITALS: BP 121/49
[2021-05-01] MEDS ORDERED: EPOETIN ALFA-EPBX 4,000 UNIT/ML VIAL SUBCUT NR (21:00)
[2021-05-01] MEDS ORDERED: CEFEPIME 2,000 MG in DEXT 5% WATER 100 ML IV SCH (22:00)
[2021-05-01 22:28] LABS: PLATELET ESTIMATE NORMAL
[2021-05-01] MEDS: VANCOMYCIN 750 MG PREMIX 150 ML IV NR ×2 (22:59→23:02)
[2021-05-02] VITALS (8 sets, daily range): BP systolic 102–143; BP diastolic 44–64
[2021-05-02] MEDS: IPRATROPIUM/ALBUTEROL 0.5-3(2.5)MG/3ML NEB HHN SCH ×3 (02:03→12:02)
[2021-05-02] MEDS ORDERED: FAMOTIDINE 20MG TABLET PO SCH (06:40)
[2021-05-02] MEDS: SEVELAMER CARBONATE 800 MG TABLET PO SCH ×3 (08:53→17:34)
[2021-05-02] MEDS: FOLIC ACID/VITAMIN B COMP W-C TABLET PO SCH (08:53)
[2021-05-02 11:42] LABS: HEPATITIS B SURFACE ANTIGEN NEGATIVE
[2021-05-02] MEDS ORDERED: AMOX1TAB15 MT (11:59)
[2021-05-02 12:11] LABS: HEPATITIS A AB IGM NEGATIVE (NEGATIVE)
[2021-05-02] MEDS ORDERED: DILTIAZEM HCL 5MG/ML 5ML VIAL IV NR (15:00)
[2021-05-02] MEDS ORDERED: DILTIAZEM HCL 60MG TABLET PO NR (17:00)
[2021-05-02] MEDS ORDERED: EPOETIN ALFA-EPBX 4,000 UNIT/ML VIAL SUBCUT NR (18:36)
== END 2021-05-02 19:30 | disposition home or self-care (01) | DRG 720 ==
LOC: ER 15:36 → 7EST 20:05 → EDBEDREQTM 20:09 → EDBEDREQ 20:09 → EDBEDREQSVC 20:09 → ENRESERV 20:15
PROVIDERS: ADMIT Internal Medicine; ATTEND Internal Medicine
PROC: 5A1D70Z Performance of Urinary Filtration, Intermittent, Less than 6 Hours Per Day (ICD-10-PCS; principal; 2021-05-02)
DX: A41.9 Sepsis, unspecified organism (principal); I12.0 Hypertensive chronic kidney disease with stage 5 chronic kidney disease or end stage renal disease; J18.9 Pneumonia, unspecified organism; E44.1 Mild protein-calorie malnutrition; N18.6 End stage renal disease; E87.8 Other disorders of electrolyte and fluid balance, not elsewhere classified; E87.1 Hypo-osmolality and hyponatremia; D63.1 Anemia in chronic kidney disease; Z20.822 Contact with and (suspected) exposure to COVID-19; I73.9 Peripheral vascular disease, unspecified; K74.60 Unspecified cirrhosis of liver; I48.91 Unspecified atrial fibrillation; Z99.2 Dependence on renal dialysis; Z68.32 Body mass index [BMI] 32.0-32.9, adult; Z79.899 Other long term (current) drug therapy; N39.0 Urinary tract infection, site not specified
CPT/HCPCS: 36415; 71045; 76700; 80053; 80061; 81003; 83036; 83605; 84145; 84484; 85025; 86705; 86709; 86803; 87070; 87340; 87426; 93005; 94640; 99291; J0692; J0696; J0885; J2543; J3370; J3490; J7030; J7040; J7060

== ENCOUNTER 2021-05-10 13:02 | Inpatient (IN) | payer OTHER ==
[~2021-05-10] VITALS: Ht 172.7 cm; Wt 77.6 kg
[~2021-05-10 13:02] MED LIST changes: +AMOX1TAB15 MT; -LEVO250T58 MT
[2021-05-10] MEDS ORDERED: ACETAMINOPHEN 325MG TABLET PO STA (15:51)
[2021-05-10] MEDS ORDERED: SODIUM CHLORIDE 0.9% 250 ML IV ONE (16:00)
[2021-05-10 16:18] LABS: BASOPHILS % 0.6 % (0.0-2.0); EOSINOPHILS % 0.7 % (0.0-5.0); HEMATOCRIT. 30.4 % (42.0-52.0); HEMOGLOBIN. 10.4 g/dL (14.0-18.0); LYMPHOCYTES % 7.5 % (20.0-50.0); MEAN CORPUSCULAR HEMOGLOBIN 32.9 pg (28.0-32.0); MEAN CORPUSCULAR VOLUME 96.3 fL (80.0-94.0); MEAN PLATELET VOLUME 8.3 fl (7.4-10.4); MONOCYTES % 4.9 % (2.0-8.0); NEUTROPHILS % 86.3 % (40.0-76.0); PLATELET 371 x1000/uL (130-400); RED BLOOD CELL COUNT 3.16 mill/uL (4.7-6.1); RED CELL DISTRIBUTION WIDTH 14.3 % (11.6-14.6)
[2021-05-10 16:25] LABS: CHLORIDE 91 mEq/L (98-107)
[2021-05-10 16:28] LABS: INR 1.1; PROTHROMBIN TIME 11.3 sec (9.6-11.0)
[2021-05-10] MEDS ORDERED: PIPERACILLIN/TAZOBACTAM 3.375GM/50ML PREMIX IV ONE (17:00)
[2021-05-11] MEDS ORDERED: ONDANSETRON HCL 4MG/2ML INJ IV PRN (08:30)
[2021-05-11] MEDS ORDERED: POTASSIUM CHLORIDE 20MEQ TABLET SR PO NR (08:30)
[2021-05-11] MEDS ORDERED: ACETAMINOPHEN 325MG TABLET PO PRN (08:30)
[2021-05-11] MEDS ORDERED: MORPHINE SULFATE 2 MG/ML CPJ (NOT FOR IM USE) IV PRN (08:30)
[2021-05-11] MEDS ORDERED: NALOXONE HCL 0.4MG/ML VIAL IV PRN (08:45)
[2021-05-11] MEDS: DEXT 5%/0.45% NACL 1000ML 1,000 ML IV SCH (09:15)
[2021-05-11] MEDS: PIPERACILLIN/TAZOBACTAM 3.375 G in DEXTROSE 5% WATER 50 ML IV SCH ×2 (09:15→21:28)
[2021-05-11 23:30] VITALS: BP 93/47
[2021-05-12] VITALS: BP_SYST 118; BP_SYST 93; BP_DIAS 47; BP_DIAS 50
[2021-05-12 04:00] VITALS: BP 115/65
[2021-05-12] MEDS: DEXT 5%/0.45% NACL 1000ML 1,000 ML IV SCH (06:57)
[2021-05-12 08:00] VITALS: BP 103/61
[2021-05-12 09:36] LABS: BASOPHILS % 0.7 % (0.0-2.0); EOSINOPHILS % 1.7 % (0.0-5.0); HEMATOCRIT. 27.6 % (42.0-52.0); HEMOGLOBIN. 9.5 g/dL (14.0-18.0); LYMPHOCYTES % 8.5 % (20.0-50.0); MEAN CORPUSCULAR HEMOGLOBIN 33.1 pg (28.0-32.0); MEAN CORPUSCULAR VOLUME 96.4 fL (80.0-94.0); MEAN PLATELET VOLUME 8.1 fl (7.4-10.4); MONOCYTES % 5.2 % (2.0-8.0); NEUTROPHILS % 83.9 % (40.0-76.0); PLATELET 316 x1000/uL (130-400); RED BLOOD CELL COUNT 2.87 mill/uL (4.7-6.1); RED CELL DISTRIBUTION WIDTH 14.4 % (11.6-14.6)
[2021-05-12] MEDS: PIPERACILLIN/TAZOBACTAM 3.375 G in DEXTROSE 5% WATER 50 ML IV SCH ×2 (10:35→21:39)
[2021-05-12 10:58] LABS: HEPATITIS B SURFACE ANTIGEN NEGATIVE
[2021-05-12 12:00] VITALS: BP 114/58
[2021-05-12 16:00] VITALS: BP 161/54
[2021-05-12] MEDS: DOCUSATE SODIUM 250MG CAPSULE PO SCH (17:57)
[2021-05-12 20:00] VITALS: BP 110/56
[2021-05-12] MEDS ORDERED: EPOETIN ALFA-EPBX 4,000 UNIT/ML VIAL SUBCUT NR (21:00)
[2021-05-13] VITALS: BP 117/57
[2021-05-13] MEDS: DEXT 5%/0.45% NACL 1000ML 1,000 ML IV SCH ×2 (00:36→20:09)
[2021-05-13 04:00] VITALS: BP 101/45
[2021-05-13 08:00] VITALS: BP 101/47
[2021-05-13] MEDS: PIPERACILLIN/TAZOBACTAM 3.375 G in DEXTROSE 5% WATER 50 ML IV SCH ×2 (08:33→21:42)
[2021-05-13] MEDS: DOCUSATE SODIUM 250MG CAPSULE PO SCH ×3 (08:33→17:22)
[2021-05-13 12:00] VITALS: BP 98/46
[2021-05-13 16:00] VITALS: BP 105/48
[2021-05-13 20:00] VITALS: BP 123/51
[2021-05-14] VITALS: BP 113/48
[2021-05-14 04:00] VITALS: BP 116/46
[2021-05-14 08:10] VITALS: BP 113/57
[2021-05-14] MEDS: DOCUSATE SODIUM 250MG CAPSULE PO SCH ×2 (09:21→18:38)
[2021-05-14] MEDS: PIPERACILLIN/TAZOBACTAM 3.375 G in DEXTROSE 5% WATER 50 ML IV SCH ×2 (09:21→21:48)
[2021-05-14 12:09] VITALS: BP 109/53
[2021-05-14 16:31] VITALS: BP 109/45
[2021-05-14 20:00] VITALS: BP 140/83
[2021-05-14] MEDS: DEXT 5%/0.45% NACL 1000ML 1,000 ML IV SCH (21:48)
[2021-05-15] VITALS: BP 114/54
[2021-05-15 04:00] VITALS: BP 113/68
[2021-05-15 06:04] LABS: INR 1.1; PROTHROMBIN TIME 11.8 sec (9.6-11.0)
[2021-05-15 06:36] LABS: CHLORIDE 98 mEq/L (98-107)
[2021-05-15 06:44] LABS: BASOPHILS % 1.2 % (0.0-2.0); EOSINOPHILS % 2.5 % (0.0-5.0); HEMATOCRIT. 26.7 % (42.0-52.0); HEMOGLOBIN. 9.1 g/dL (14.0-18.0); LYMPHOCYTES % 15.5 % (20.0-50.0); MEAN CORPUSCULAR HEMOGLOBIN 32.5 pg (28.0-32.0); MEAN PLATELET VOLUME 7.8 fl (7.4-10.4); MONOCYTES % 7.8 % (2.0-8.0); PLATELET 277 x1000/uL (130-400); RED BLOOD CELL COUNT 2.81 mill/uL (4.7-6.1); RED CELL DISTRIBUTION WIDTH 14.1 % (11.6-14.6)
[2021-05-15 08:00] VITALS: BP 135/61
[2021-05-15] MEDS: PIPERACILLIN/TAZOBACTAM 3.375 G in DEXTROSE 5% WATER 50 ML IV SCH ×2 (08:32→21:36)
[2021-05-15] MEDS: DOCUSATE SODIUM 250MG CAPSULE PO SCH ×2 (08:33→17:22)
[2021-05-15 12:00] VITALS: BP 109/53
[2021-05-15] MEDS: DEXT 5%/0.45% NACL 1000ML 1,000 ML IV SCH (12:55)
[2021-05-15] MEDS ORDERED: IOHEXOL-300 100 ML BOTTLE ONE (14:20)
[2021-05-15] MEDS ORDERED: SIMETHICONE 40 MG/0.6 ML 30ML ONE (14:20)
[2021-05-15 16:00] VITALS: BP 126/54
[2021-05-15 20:00] VITALS: BP 120/52
[2021-05-15] MEDS ORDERED: HEPARIN SODIUM 1,000 UNIT/1ML VIAL IV SCH (21:00)
[2021-05-15] MEDS ORDERED: EPOETIN ALFA-EPBX 4,000 UNIT/ML VIAL SUBCUT SCH (21:00)
[2021-05-16] VITALS: BP_SYST 105; BP_SYST 140; BP_DIAS 62; BP_DIAS 70
[2021-05-16 04:00] VITALS: BP 117/54
[2021-05-16 08:00] VITALS: BP 112/64
[2021-05-16] MEDS: DOCUSATE SODIUM 250MG CAPSULE PO SCH ×2 (09:00→17:00)
[2021-05-16] MEDS: PIPERACILLIN/TAZOBACTAM 3.375 G in DEXTROSE 5% WATER 50 ML IV SCH (10:40)
[2021-05-16] MEDS: DEXT 5%/0.45% NACL 1000ML 1,000 ML IV SCH (10:41)
[2021-05-16 12:00] VITALS: BP 127/90
[2021-05-16] MEDS ORDERED: IOHEXOL-300 100 ML BOTTLE ONE (14:29)
[2021-05-16] MEDS ORDERED: SIMETHICONE 40 MG/0.6 ML 30ML ONE (14:29)
[2021-05-16] MEDS ORDERED: PROPOFOL 200MG/20ML VIAL IV ONE (14:36)
[2021-05-16] MEDS ORDERED: STERILE WATER FOR INJECTION 10ML VIAL ONE (14:38)
[2021-05-16] MEDS ORDERED: ONDANSETRON HCL 4MG/2ML INJ ONE (14:39)
[2021-05-16] MEDS ORDERED: ALBUTEROL 90MCG/PUFF 17GM INHALER INH ONE (15:01)
[2021-05-16] MEDS ORDERED: ACETAMINOPHEN 500MG TABLET ONE (15:01)
[2021-05-16] MEDS ORDERED: ALBUMIN HUMAN 12.5G/250ML (5%) IV ONE (15:02)
[2021-05-16 20:37] VITALS: BP 115/51
[2021-05-16] MEDS ORDERED: EPOETIN ALFA-EPBX 4,000 UNIT/ML VIAL SUBCUT NR (21:00)
[2021-05-16] MEDS: GUAIFENESIN-DM 200MG-20MG/10ML UDC PO PRN (22:01)
[2021-05-16] MEDS: ZOLPIDEM TARTRATE 5MG TABLET PO PRN (22:02)
[2021-05-17] VITALS (7 sets, daily range): BP systolic 110–135; BP diastolic 39–66
[2021-05-17] MEDS: DEXT 5%/0.45% NACL 1000ML 1,000 ML IV SCH (06:23)
[2021-05-17] MEDS: DOCUSATE SODIUM 250MG CAPSULE PO SCH ×2 (08:59→17:00)
[2021-05-17] MEDS ORDERED: IRON SUCROSE COMPLEX 100 MG/5 ML ML IV NR (19:30)
[2021-05-17] MEDS ORDERED: EPOETIN ALFA-EPBX 4,000 UNIT/ML VIAL SUBCUT NR (21:00)
[2021-05-17] MEDS: ZOLPIDEM TARTRATE 5MG TABLET PO PRN (22:35)
[2021-05-17] MEDS: GUAIFENESIN-DM 200MG-20MG/10ML UDC PO PRN (22:35)
[2021-05-18 00:29] VITALS: BP 134/66
[2021-05-18] MEDS: DEXT 5%/0.45% NACL 1000ML 1,000 ML IV SCH (00:30)
[2021-05-18 04:00] VITALS: BP 123/50
[2021-05-18 07:35] LABS: BASOPHILS % 1.1 % (0.0-2.0); EOSINOPHILS % 2.4 % (0.0-5.0); LYMPHOCYTES % 15.6 % (20.0-50.0); MEAN CORPUSCULAR HEMOGLOBIN 33.4 pg (28.0-32.0); MEAN CORPUSCULAR VOLUME 92.8 fL (80.0-94.0); MEAN PLATELET VOLUME 7.6 fl (7.4-10.4); MONOCYTES % 7.1 % (2.0-8.0); NEUTROPHILS % 73.8 % (40.0-76.0); PLATELET 225 x1000/uL (130-400); RED BLOOD CELL COUNT 2.69 mill/uL (4.7-6.1); RED CELL DISTRIBUTION WIDTH 14.3 % (11.6-14.6)
[2021-05-18 07:57] VITALS: BP 138/68
[2021-05-18] MEDS: DOCUSATE SODIUM 250MG CAPSULE PO SCH (09:00)
[2021-05-18 11:50] VITALS: BP 120/63
[2021-05-18 12:06] VITALS: BP 120/63
[2021-05-18] MEDS ORDERED: EPOETIN ALFA-EPBX 4,000 UNIT/ML VIAL SUBCUT NR (21:00)
== END 2021-05-18 14:15 | disposition home or self-care (01) ==
LOC: ER 13:02 → MICUSO 17:23 → EDBEDREQ 17:25 → EDBEDREQTM 17:25 → ENRESERV 21:09 → CANRESERV 21:09 → 7WST 05-11 08:47 → MICUSO 05-11 09:04 → 6WST 05-11 20:47
PROVIDERS: ADMIT Internal Medicine; ATTEND Internal Medicine
PROC: 5A1D70Z Performance of Urinary Filtration, Intermittent, Less than 6 Hours Per Day (ICD-10-PCS; 2021-05-13)
PROC: 0FC98ZZ Extirpation of Matter from Common Bile Duct, Via Natural or Artificial Opening Endoscopic (ICD-10-PCS; principal; 2021-05-16)
PROC: 0F798DZ Dilation of Common Bile Duct with Intraluminal Device, Via Natural or Artificial Opening Endoscopic (ICD-10-PCS; 2021-05-16)
PROC: 5A1D70Z Performance of Urinary Filtration, Intermittent, Less than 6 Hours Per Day (ICD-10-PCS; 2021-05-16)
PROC: 5A1D70Z Performance of Urinary Filtration, Intermittent, Less than 6 Hours Per Day (ICD-10-PCS; 2021-05-18)
DX: K80.50 Calculus of bile duct without cholangitis or cholecystitis without obstruction (principal); E44.1 Mild protein-calorie malnutrition; N17.9 Acute kidney failure, unspecified; I12.0 Hypertensive chronic kidney disease with stage 5 chronic kidney disease or end stage renal disease; E87.8 Other disorders of electrolyte and fluid balance, not elsewhere classified; E87.1 Hypo-osmolality and hyponatremia; K74.60 Unspecified cirrhosis of liver; N18.6 End stage renal disease; D63.1 Anemia in chronic kidney disease; I48.91 Unspecified atrial fibrillation; Z99.2 Dependence on renal dialysis; E66.9 Obesity, unspecified; E87.6 Hypokalemia; R59.0 Localized enlarged lymph nodes; Z20.822 Contact with and (suspected) exposure to COVID-19; R73.9 Hyperglycemia, unspecified; N28.1 Cyst of kidney, acquired; K44.9 Diaphragmatic hernia without obstruction or gangrene; K52.9 Noninfective gastroenteritis and colitis, unspecified; I73.9 Peripheral vascular disease, unspecified; Z87.891 Personal history of nicotine dependence; Z68.26 Body mass index [BMI] 26.0-26.9, adult; Z79.82 Long term (current) use of aspirin; Z79.899 Other long term (current) drug therapy; Z71.3 Dietary counseling and surveillance
CPT/HCPCS: 36415; 71045; 74176; 74181; 74328; 80048; 80053; 80076; 82140; 82248; 82728; 83605; 83735; 84145; 84484; 85025; 86140; 86705; 86709; 86803; 87015; 87045; 87340; 87426; 87427; 87449; 89055; 93005; 99291; A4216; C1726; C1769; C1893; C2625; J0885; J2405; J2543; J2704; J7030; J7060; P9041; Q9967; U0003; U0005